=== PATIENT | female | born 1990 | race Two or more races ===

== ENCOUNTER 2016-11-04 10:22 | Day surgery (SDC) | payer MEDICAID ==
[~2016-11-04 10:22] MED LIST: BUPIVACAINE 0.25% 30 ML SDV ONE; METHYLENE BLUE 0.5% 50 MG/10 ML AMP ONE; SILVER NITRATE APPLICATOR 1 APPL TP ONE; SKIN ADHESIVE (DERMABOND) 1 EACH TP ONE; SURGIFLO MATRIX KIT WITH THROMBIN TP ONE
[2016-11-04 11:25] LABS: % IMMATURE GRANULYOCYTES 0.3 % (0.0-1.1); ABSOLUTE IMMATURE GRANULOCYTES 0.02 10^3/uL (0.00-0.10); ADD DIFF? NO; ADD MORPH? NO; ADD SCAN? NO; ATYPICAL LYMPHOCYTE FLAG 20 (0-99); FRAGMENT RBC FLAG 0 (0-99); HEMATOCRIT 41.1 % (38.0-47.0); HEMOGLOBIN 13.4 g/dL (12.6-16.3); LEFT SHIFT FLG 0 (0-99); LIPEMIA HEMOLYSIS FLAG 80 (0-99); MEAN CELL HEMOGLOBIN 29.3 pg (27.9-34.1); MEAN CELL HEMOGLOBIN CONCENTR. 32.6 g/dL (32.4-36.7); MEAN CELL VOLUME 89.7 fL (81.5-99.8); MEAN PLATELET VOLUME 10.5 fL (8.7-11.7); PLATELET CLUMPS FLAG 0 (0-99); PLATELET COUNT 277 10^3/uL (150-400); RED BLOOD CELL COUNT 4.58 10^6/uL (4.18-5.33); RED CELL DISTRIBUTION WIDTH 12.9 % (11.5-15.2)
[2016-11-04] MEDS ORDERED: LR 1,000 ML IV ONE (11:27)
[2016-11-04] MEDS ORDERED: fentaNYL 100 MCG/2 ML INJ ONE ×2 (11:51→13:37)
[2016-11-04] MEDS ORDERED: ROCURONIUM 50 MG/5 ML VIAL ONE (11:54)
[2016-11-04] MEDS ORDERED: ONDANSETRON 4 MG/2 ML VIAL ONE (11:54)
[2016-11-04] MEDS ORDERED: KETOROLAC 30 MG/1 ML SDV ONE (11:54)
[2016-11-04] MEDS ORDERED: DEXAMETHASONE 4 MG/ML VIAL ONE (11:54)
[2016-11-04] MEDS ORDERED: LIDOCAINE 2% 5 ML SDV ONE (11:55)
[2016-11-04] MEDS ORDERED: SCOPOLAMINE HYDROBROMIDE 1.5 MG PATCH TD ONE ×2 (11:55→12:00)
[2016-11-04] MEDS ORDERED: MIDAZOLAM 2 MG/2 ML VIAL ONE (11:56)
[2016-11-04] MEDS ORDERED: PROPOFOL 200 MG/20 ML VIAL ONE (11:56)
[2016-11-04] MEDS ORDERED: NEOSTIGMINE METHYLSULFATE 5 MG/5 ML SYR ONE (13:20)
[2016-11-04] MEDS ORDERED: GLYCOPYRROLATE 0.2 MG/1 ML VIAL ONE (13:20)
[2016-11-04] MEDS ORDERED: HYDROmorphONE/DILAUDID 1 MG/ML SYR ONE (14:07)
[2016-11-04] MEDS ORDERED: HYDROmorphONE/DILAUDID 2 MG TAB ONE (14:36)
--- NOTE | 2016-11-04 14:38 | GOP ---
[f rep st] OPERATIVE REPORT DATE OF OPERATION: 11/04/2016 SURGEON: Emily Syed MD FLATWORK FOLDER: Leslye Hagan MD. ANESTHESIA: General. PREOPERATIVE DIAGNOSIS: Right pelvic pain, right ovarian cyst, and amenorrhea. POSTOPERATIVE DIAGNOSIS: Right pelvic pain, right ovarian cyst, and amenorrhea. PROCEDURE PERFORMED: Laparoscopic right ovarian cystectomy and endometrial biopsy. FINDINGS: 2 cm dermoid cyst in the right ovary. Normal left ovary. Normal uterus, fallopian tubes. No evidence of endometriosis. Normal appendix, and also normal-appearing endometrium, with biopsy. SPECIMENS: Right ovarian cyst and endometrial biopsy. ESTIMATED BLOOD LOSS: Less than 10 mL. INDICATIONS: This patient is a 26-year-old female, who is having a long- standing history of right ovarian pain, right pelvic pain. Was noted to have a right dermoid cyst, and has also had amenorrhea since March of 2016, despite a Provera challenge. The patient desires surgical management and evaluation of the endometrium with biopsy, under anesthesia. DESCRIPTION OF PROCEDURE: The patient was taken to the operating room where she was prepped and draped in normal sterile fashion, in the low dorsal lithotomy position. A surgical time-out was performed verifying the patient's name, date of , operative procedure and site. The patient had a Oconnor catheter in her bladder. The anterior aspect of the cervix was grasped with a single-tooth tenaculum. A uterine manipulator was placed into the cervical canal. Gloves were changed. The umbilicus was injected with 0.25% Marcaine. A 10 mm incision was made with an 11 blade scalpel. Subcutaneous tissue was dissected down to the fascia. The fascia was identified and tented up with Satinder clamps, and incised with a 15 blade scalpel. The rectus sheath was identified and tented up, incised with the Metzenbaum scissors. The fascia was tagged with 0 Vicryl. The Jemma port was placed in the patient's abdominal cavity. The abdomen was insufflated. Approximately 5 cm to the right of the umbilicus and 2 cm caudad, the skin was transilluminated and injected with 0.25 % Marcaine. A 5 mm incision was made and a trocar was placed into the abdominal cavity. The same procedure was performed on the patient's left. Visualization of the pelvic cavity revealed a normal uterus, fallopian tubes bilaterally, and normal left ovary. Her right ovary was enlarged and suspicious for a cyst. The right ovary was then cauterized with the needlepoint cautery and the 2 cm dermoid cyst was transected out with the [place] scissors, and then removed and sent to Pathology. The ovarian fossa was made hemostatic with Surgiflo. The ports were then removed under direct visualization. The skin was closed with 4-0 Monocryl on the lateral ports, the umbilical fascia was reapproximated with 0 Vicryl. The skin was closed with 4- 0 Monocryl. The endometrial biopsy then took place. The patient was placed in high lithotomy position. A bivalve speculum was placed in the patient's vagina. The uterine manipulator was removed. The cervix was grasped with a single-tooth tenaculum. The patient had an endometrial biopsy that took place, without any complications. Uterine cavity length was 6 cm. The bivalve speculum was removed. The tenaculum was removed. Hemostasis was made with silver nitrate. The patient tolerated the procedure well. The Oconnor catheter was removed. All counts were correct x2. COMPLICATION: None. OUTCOME: Stable to recovery room. /[id number]/MODL MTDD
[2016-11-04] MEDS ORDERED: HYDROmorphONE/DILAUDID 2 MG TAB PO PRN (15:30)
[2016-11-04] MEDS ORDERED: LR 1,000 ML IV SCH (15:30)
== END 2016-11-04 16:55 | disposition home or self-care (01) ==
LOC: FSGY 10:22
PROVIDERS: ATTEND Obstetrics & Gynecology
PROC: 0U504ZZ Destruction of Right Ovary, Percutaneous Endoscopic Approach (ICD-10-PCS; principal; 2016-11-04 12:00)
PROC: 0UBC0ZX Excision of Cervix, Open Approach, Diagnostic (ICD-10-PCS; principal; 2016-11-04 12:00)
DX: D27.0 Benign neoplasm of right ovary (principal); N91.2 Amenorrhea, unspecified
CPT/HCPCS: J1100; J1170; J1885; J2250; J2405; J2704; J2710; J3010; Q9968

== ENCOUNTER 2017-08-20 14:20 | Emergency (ER) | payer MEDICAID, OTHER ==
[2017-08-20 14:28] VITALS: BP 108/76; PULSE 82; RESP 16; TEMP 97.9; O2SAT 97
[2017-08-20] MEDS ORDERED: NS 1,000 ML IV ONE (14:37)
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
[2017-08-20 15:47] LABS: % IMMATURE GRANULYOCYTES 0.3 % (0.0-1.1); ABSOLUTE IMMATURE GRANULOCYTES 0.03 10^3/uL (0.00-0.10); ADD DIFF? NO; ADD MORPH? NO; ADD SCAN? NO; ATYPICAL LYMPHOCYTE FLAG 0 (0-99); FRAGMENT RBC FLAG 0 (0-99); HEMATOCRIT 39.3 % (38.0-47.0); HEMOGLOBIN 13.2 g/dL (12.6-16.3); LEFT SHIFT FLG 0 (0-99); LIPEMIA HEMOLYSIS FLAG 80 (0-99); MEAN CELL HEMOGLOBIN 29.3 pg (27.9-34.1); MEAN CELL HEMOGLOBIN CONCENTR. 33.6 g/dL (32.4-36.7); MEAN CELL VOLUME 87.1 fL (81.5-99.8); MEAN PLATELET VOLUME 10.1 fL (8.7-11.7); PLATELET CLUMPS FLAG 0 (0-99); PLATELET COUNT 300 10^3/uL (150-400); RED BLOOD CELL COUNT 4.51 10^6/uL (4.18-5.33); RED CELL DISTRIBUTION WIDTH 13.4 % (11.5-15.2)
[2017-08-20 16:05] LABS: ANION GAP 11 mEq/L (8-16); CALCIUM 9.7 mg/dL (8.5-10.4); CARBON DIOXIDE 24 mEq/l (22-31); CHLORIDE 105 mEq/L (97-110); CREATININE 0.6 mg/dL (0.6-1.0); GLOMERULAR FILTRATION RATE > 60; GLUCOSE 83 mg/dL (70-100); SODIUM 140 mEq/L (134-144)
[2017-08-20 16:27] LABS: COLOR YELLOW; LEUKOCYTE ESTERASE,URINE NEGATIVE (NEGATIVE); NITRITE,URINE NEGATIVE (NEGATIVE)
[2017-08-20 16:31] LABS: MUCUS TRACE /lpf (NONE-1+)
== END 2017-08-20 17:15 | disposition home or self-care (01) ==
DX: O03.9 Complete or unspecified spontaneous abortion without complication (principal); O99.281 Endocrine, nutritional and metabolic diseases complicating pregnancy, first trimester; E86.9 Volume depletion, unspecified; Z3A.01 Less than 8 weeks gestation of pregnancy

== ENCOUNTER → 2017-08-30 | Outpatient (CLI) | payer OTHER | LOC: FIMAGING 15:18 | PROVIDERS: ATTEND Obstetrics & Gynecology | DX: N83.201 Unspecified ovarian cyst, right side (principal) ==

== ENCOUNTER → 2017-09-02 | Outpatient (CLI) | payer OTHER | LOC: FIMAGING 15:53 | PROVIDERS: ATTEND Midwife | DX: O03.9 Complete or unspecified spontaneous abortion without complication (principal); N83.201 Unspecified ovarian cyst, right side ==